=== PATIENT | male | born 1960 | race Caucasian/White ===

== ENCOUNTER 2017-12-31 16:25 | Emergency (ER) | payer BC, OTHER ==
[2017-12-31] MEDS: LIDOCAINE 2% MDV 20 ML VIAL SC (17:30)
[2017-12-31] MEDS: TETANUS/DIPHTHERIA TOX ADSORB ADULT 0.5ML SYR/VIAL (90714) IM (17:53)
[2017-12-31] MEDS: PERCOCET 5MG/325MG TAB PO (17:53)
[2017-12-31] MEDS: ceFAZolin SOD 1 GM in D5W MINI-BAG PLUS 50 ML IV (18:23)
[2017-12-31] MEDS: DERMABOND TOPICAL SKIN ADHESIVE TOP ×2 (19:00)
[2017-12-31] MEDS: ONDANSETRON 4MG/2ML VIAL (J2405) IV (19:03)
[2017-12-31] MEDS: MORPHINE 2 MG/ML 1ML SYRINGE (J2270) IV (19:04)
== END 2017-12-31 20:29 | disposition home or self-care (01) ==
LOC: M ED 16:25
DX: S61.512A Laceration without foreign body of left wrist, initial encounter (principal)
CPT/HCPCS: J0690